=== PATIENT | male | born 1985 | race Caucasian/White ===

== ENCOUNTER 2017-11-05 08:59 | Emergency (ER) | payer SELFPAY ==
[2017-11-05 10:29] VITALS: BP 149/93
--- NOTE | 2017-11-09 06:19 | ED ---
Skin Complaint - HPI Summary HPI Summary: 31 y.o. male presents w/ swelling around Lt eye x 1 day. "I think a spider bit me in my sleep". Yesterday morning woke with a "lump" on his Lt forehead. Does not recall any injury to the area but was outside and has had aggressive reaction to bug bites in the past (especially when he's in a new area of the country). He is visiting from [place]. Swelling moved from his forehead to his perioribtal region. Although he has swelling about his eye, he has no pain at rest or with movement, no change in vision, no ocular irritation/itching/ discharge. Furthermore, he denies CASTELAN, fever, chills, neck pain or stiffness, lymphadenopathy, difficulty swallowing or breathing. Pt took 6 ibuprofen yesterday for swelling w/ minimal relief. - History of Current Complaint Chief Complaint: EDEyeProblem Time Seen by Provider: 11/05/17 09:28 Stated Complaint: LT EYE ISSUE Hx Obtained From: Patient Pain Intensity: 1 Pain Scale Used: 0-10 Numeric - Allergy/Home Medications Allergies/Adverse Reactions: Allergies Allergy/AdvReac Type Severity Reaction Status Date / Time No Known Allergies Allergy Verified 11/05/17 09:09 Home Medications: Home Medications NK [No Home Medications Reported] 11/05/17 [History Confirmed 11/05/17] PMH/Surg Hx/FS Hx/Imm Hx Previously Healthy: Yes Endocrine/Hematology History: Denies: Hx Anticoagulant Therapy, Hx Blood Disorders, Autoimmune Disease Cardiovascular History: Reports: Other Cardiovascular Problems/Disorders - Pt reports h/o elevated BP's in the past w/o tx Denies: Hx Aneurysm, Hx Cardiac Arrest, Hx Myocardial Infarction Respiratory History: Denies: Hx Asthma - Immunization History Immunizations Up to Date: Yes Infectious Disease History: No Infectious Disease History: Denies: Hx of Known/Suspected MRSA, Traveled Outside the [place] in Last 30 Days - Social History Occupation: Employed Full-time Lives: Alone Alcohol Use: Daily Alcohol Amount: 2-3 beers Substance Use Type: Reports: Cocaine - h/o - not currently, Marijuana Hx Tobacco Use: Yes Smoking Status (MU): Current Every Day Smoker Review of Systems Constitutional: Negative Negative: Fever, Chills, Fatigue Eyes: Negative Negative: Photophobia, Blurred Vision, Diplopia, Drainage, Erythema ENT: Negative Negative: Sore Throat, Ear Ache, Nasal Discharge Cardiovascular: Negative Negative: Palpitations, Chest Pain Respiratory: Negative Negative: Shortness Of Breath, Cough Negative: Nausea Positive: no symptoms reported Skin: Other - swelling Neurological: Negative Negative: Headache Psychological: Normal Negative: Anxious All Other Systems Reviewed And Are Negative: Yes Physical Exam Triage Information Reviewed: Yes Vital Signs On Initial Exam: Initial Vitals Temp Pulse Resp BP Pulse Ox 98 F 63 16 161/96 97 11/05/17 09:11 11/05/17 09:11 11/05/17 09:11 11/05/17 09:11 11/05/17 09:11 Vital Signs Reviewed: Yes Appearance: Positive: Well-Appearing, No Pain Distress, Well-Nourished Skin: Positive: Warm, Skin Color Reflects Adequate Perfusion, Dry - no erythema , no ecchymosis, no lesions, no fever to touch over affected area- forehead clear as well Head/Face: Positive: Normal Head/Face Inspection - focal superior palpebra edema - mild bogginess - otherwise normal Eyes: Positive: Normal, EOMI, IGOR - no photophobia, Conjunctiva Clear. Negative: Conjunctiva Inflammed, Discharge ENT: Positive: Normal ENT inspection, Hearing grossly normal, Pharynx normal, TMs normal. Negative: Nasal congestion Dental: Negative: Abscess @ Neck: Positive: Supple, Nontender, No Lymphadenopathy Respiratory/Lung Sounds: Positive: Breath Sounds Present. Negative: Stridor, Wheezes Cardiovascular: Positive: Normal, S1, S2. Negative: Murmur, Rub, Leg Edema Left , Leg Edema Right Musculoskeletal: Positive: Normal, Strength/ROM Intact - cervical spine Neurological: Positive: Normal, Sensory/Motor Intact, Alert, Oriented to Person Place, Time, CN Intact II-III Psychiatric: Positive: Normal Diagnostics - Vital Signs Vital Signs Temp Pulse Resp BP Pulse Ox 11/05/17 10:15 98.0 F 52 14 149/93 99 11/05/17 10:12 52 99 11/05/17 10:01 149/93 11/05/17 09:57 185/104 11/05/17 09:28 54 161/99 98 11/05/17 09:27 53 98 11/05/17 09:11 98 F 63 16 161/96 97 - Laboratory Lab Statement: Any lab studies that have been ordered have been reviewed, and results considered in the medical decision making process. Course/Dx - Course Course Of Treatment: Suspect pt had inflammatory response to bug bite of unknown origin last night. He reports h/o skin rxn in the past - most likely same case this time. Swelling from forehead appears to have migrated to periorbital region, resulting in sx today. He has not ocular sx and otherwise feels fine. Will have pt try anti-histamine + ice to reduce swelling. Reviewed danger s/sx of when to f/u w/ PCP. Pt agrees w/ plan. NOTE: Pt's BP is elevated today. He's he's been told in the past these have elevated blood pressure but never sought treatment. Today he denies headache, visual change, chest pain, shortness of breath, jaw pain, arm pain, numbness, tingling or weakness. He does admit to a history of chest palpitations in the past. With his remote history of cocaine use and current history stimulants (i.e. tobacco, caffeine, alcohol, etc.), suggest close follow-up with PCP for recheck of blood pressure. If this persists he may be good candidate for medication. He may also make lifestyle adjustments will be discussed today including biofeedback techniques. Patient is visiting from out of town so recommended he go to the [facility] for this follow-up. Reviewed danger signs and symptoms of when to return to the emergency department sooner. Patient agrees with plan. - Diagnoses Provider Diagnoses: Allergic reaction Discharge - Sign-Out/Discharge Documenting (check all that apply): Patient Departure - Discharge Plan Condition: Stable Disposition: HOME Patient Education Materials: Insect Bite or Sting (ED), Hypertension (ED) Forms: *Work Release Referrals: [facility] [Outside] Additional Instructions: You appear to have residual swelling about her left eye from bug bite. This may be alleviated with Benadryl 50 mg every 6 hours as well as topical ice. Benadryl may cause drowsiness so do not take before going to work or driving machinery. He may try Zyrtec or Claritin on work days as these medications have reduced drowsiness effect however try them first before attempting to operate machinery. He may continue ibuprofen with food as well for swelling and /or pain if it develops. If her symptoms worsen or he develop change in vision , return to the emergency department. NOTE: You were found to have elevated blood pressure here today. This was improved with a relaxation technique called biofeedback which you may continue each day in an effort to reduce your blood pressure (BP). And although this helped, your BP was still above normal (goal is 120/80 or less - your corrected blood pressure was 149/93). It is important that you follow up tomorrow with [facility], a local primary care office in the hospital. Call in the morning to schedule an appointment. Please share with them your history of high blood pressure readings along with chest symptoms you've experienced intermittently in the past. If you develop any acute chest symptoms such as pain, shortness of breath, and/or visual change, fatigue, syncope or near syncope, dizziness, return to the emergency department or call 911. In the meantime, see educational information to reduce BP via lifestyle changes (.e eliminate caffeine, gentle cardio exercise, reduce salt intake, etc). Avoid stimulants such as alcohol and vasoconstrictors such as Sudafed or Afrin. Read packages of medication before taking and if they caution use w/ hypertension, do not take until cleared by PCP. - Billing Disposition and Condition Condition: STABLE Disposition: Home
== END 2017-11-05 10:15 | disposition home or self-care (01) ==
LOC: ED 08:59
DX: T78.40XA Allergy, unspecified, initial encounter (principal); W57.XXXA Bitten or stung by nonvenomous insect and other nonvenomous arthropods, initial encounter; F17.210 Nicotine dependence, cigarettes, uncomplicated
CPT/HCPCS: 99282